=== PATIENT | female | born 1990 | race Caucasian/White ===

== ENCOUNTER 2018-03-22 08:56 | Emergency (ER) | payer SELFPAY ==
[~2018-03-22] VITALS: Ht 157.5 cm; Wt 58.1 kg
[2018-03-22 09:02] VITALS: BP_SYST 141
[2018-03-22] MEDS ORDERED: HYDROcodone/ACETAMIN 5-325 MG TAB (NORCO/ VICODIN) PO ONE (09:45)
[2018-03-22] MEDS ORDERED: LIDOCAINE 1% 10 MG/ML, 20 ML MDV IJ ONE (09:45)
[2018-03-22] MEDS ORDERED: AZITHROMYCIN 250 MG TABLET PO ONE (10:00)
[2018-03-22 10:38] VITALS: BP_SYST 135
[2018-03-23 21:05] LABS: CHLAMYDIA TRACHOMATIS NAA Negative (Negative); NEISSERIA GONORRHOEAE NAA Negative (Negative)
== END 2018-03-22 10:38 | disposition home or self-care (01) ==
LOC: SED 08:56
DX: N75.1 Abscess of Bartholin's gland (principal)
CPT/HCPCS: 56420; 87070; 87075; 87491; 87591; 99284; J2001; Q0144

== ENCOUNTER 2018-03-23 07:41 | Emergency (ER) | payer SELFPAY ==
[~2018-03-23] VITALS: Ht 157.5 cm; Wt 58.1 kg
[2018-03-23 07:43] VITALS: BP_SYST 104
[2018-03-23] MEDS ORDERED: LIDOCAINE 1%, 20 ML MDV 20 ML ONE (08:05)
[2018-03-23] MEDS ORDERED: SULFAMETHOXAZOLE/TRIMETHOPR DS 1 TABLET PO ONE (08:30)
[2018-03-23] MEDS ORDERED: IBUPROFEN 800 MG TABLET PO ONE (08:30)
[2018-03-23 08:47] VITALS: BP_SYST 104
== END 2018-03-23 08:47 | disposition home or self-care (01) ==
LOC: SED 07:41
DX: N76.4 Abscess of vulva (principal)
CPT/HCPCS: 56405; 99284; J2001

== ENCOUNTER 2018-03-25 08:22 | Emergency (ER) | payer SELFPAY ==
[~2018-03-25] VITALS: Ht 157.5 cm; Wt 58.1 kg
[2018-03-25 08:26] VITALS: BP_SYST 132
[2018-03-25] MEDS: KETOROLAC TROMETHAMINE 60 MG/2 ML VIAL IM ONE ×2 (08:54→08:58)
[2018-03-25] MEDS ORDERED: LIDOCAINE 1% 10 MG/ML, 20 ML MDV INJ ONE (09:00)
[2018-03-25] MEDS ORDERED: HYDROcodone/ACETAMIN 5-325 MG TAB (NORCO/ VICODIN) PO ONE (09:15)
[2018-03-25 09:25] VITALS: BP_SYST 130
== END 2018-03-25 09:25 | disposition home or self-care (01) ==
LOC: SED 08:22
DX: Z48.01 Encounter for change or removal of surgical wound dressing (principal); F17.210 Nicotine dependence, cigarettes, uncomplicated
CPT/HCPCS: 99282; J1885